=== PATIENT | female | born 1960 | race Caucasian/White ===

== ENCOUNTER → 2016-06-03 | Outpatient (REF) | payer OTHER | LOC: M LAB REF 16:14 | PROVIDERS: ATTEND Internal Medicine | DX: L72.3 Sebaceous cyst (principal) ==

== ENCOUNTER → 2016-08-28 | Outpatient (REF) | payer OTHER | LOC: M LAB REF 12:02 | PROVIDERS: ATTEND Surgery | DX: L72.3 Sebaceous cyst (principal) ==

== ENCOUNTER → 2020-05-05 | Outpatient (CLI) | payer OTHER | LOC: M LABSMTC 11:17 | PROVIDERS: ATTEND Surgery | DX: Z01.812 Encounter for preprocedural laboratory examination (principal); K64.2 Third degree hemorrhoids; K60.3 Anal fistula ==

== ENCOUNTER 2021-09-19 16:43 | Emergency (ER) | payer OTHER ==
[~2021-09-19] VITALS: Ht 175.3 cm; Wt 70.5 kg
[2021-09-19 16:43] VITALS: BP 160/68
[2021-09-19] MEDS ORDERED: MOME50SP2 (16:50)
[2021-09-19] MEDS ORDERED: LEVOTAB10 (16:50)
[2021-09-19] MEDS ORDERED: BUPR75TA5 (16:50)
[2021-09-19] MEDS ORDERED: ERYTHROMYCIN OPHTH OINT OS ONE (19:50)
[2021-09-19] MEDS ORDERED: ERYT5OIN25 OS (20:00)
== END 2021-09-19 20:11 | disposition home or self-care (01) ==
LOC: M ED 16:43
DX: S05.02XA Injury of conjunctiva and corneal abrasion without foreign body, left eye, initial encounter (principal); W22.8XXA Striking against or struck by other objects, initial encounter; F41.9 Anxiety disorder, unspecified; F32.A Depression, unspecified; Z88.0 Allergy status to penicillin; Y92.009 Unspecified place in unspecified non-institutional (private) residence as the place of occurrence of the external cause; Y93.E5 Activity, floor mopping and cleaning; Y99.9 Unspecified external cause status; Z79.899 Other long term (current) drug therapy

== ENCOUNTER → 2021-10-09 | Outpatient (REF) | payer OTHER ==
[~2021-10-09] MED LIST: BUPR75TA5; ERYT5OIN25 OS; LEVOTAB10; MOME50SP2
== END ==
LOC: M LAB REF 16:24
PROVIDERS: ATTEND Ophthalmology
DX: H11.222 Conjunctival granuloma, left eye (principal)

== ENCOUNTER → 2022-03-25 | Outpatient (REF) | payer OTHER | LOC: M LAB REF 10:14 | PROVIDERS: ATTEND Internal Medicine | DX: M25.50 Pain in unspecified joint (principal) ==

== ENCOUNTER → 2022-12-11 | Outpatient (REF) | payer OTHER | LOC: M LAB REF 16:08 | PROVIDERS: ATTEND Internal Medicine | DX: R35.0 Frequency of micturition (principal); N39.0 Urinary tract infection, site not specified ==

== ENCOUNTER → 2022-12-23 | Outpatient (REF) | payer OTHER | LOC: M LAB REF 16:45 | PROVIDERS: ATTEND Internal Medicine | DX: R31.9 Hematuria, unspecified (principal); R89.6 Abnormal cytological findings in specimens from other organs, systems and tissues ==

== ENCOUNTER → 2022-12-30 | Outpatient (REF) | payer OTHER | LOC: M LAB REF 17:22 | PROVIDERS: ATTEND Internal Medicine | DX: R31.9 Hematuria, unspecified (principal); R87.619 Unspecified abnormal cytological findings in specimens from cervix uteri ==

== ENCOUNTER → 2024-01-06 | Outpatient (CLI) | payer OTHER | LOC: M RAD 15:03 | PROVIDERS: ATTEND Internal Medicine | DX: R42 Dizziness and giddiness (principal) ==

== ENCOUNTER → 2024-08-09 | Outpatient (REF) | payer OTHER ==
[2024-08-10 13:38] LABS: IRON (FE) 87 UG/DL (50-170); PERCENT SATURATION 21.2 % (13.2-45.0); TOTAL IRON BINDING CAPACITY 411 UG/DL (250-425)
[2024-08-10 13:45] LABS: CARCINOEMBRYONIC ANTIGEN < 2.0 NG/ML (<2.5)
[2024-08-10 13:46] LABS: FERRITIN 8.2 NG/ML (7.3-270.7)
== END ==
LOC: M LAB REF 12:25
PROVIDERS: ATTEND Internal Medicine
DX: D50.9 Iron deficiency anemia, unspecified (principal); Z80.0 Family history of malignant neoplasm of digestive organs